=== PATIENT | female | born 1990 | race Two or more races ===

== ENCOUNTER 2019-07-05 06:46 | Inpatient (IN) | payer OTHER ==
[~2019-07-05] VITALS: Ht 152.4 cm; Wt 92.5 kg
[~2019-07-05 06:46] MED LIST: TRAM1TAB98 PO
[2019-07-05] MEDS ORDERED: PRENATAL TABLE1 EAC1 PO (08:38)
== END 2019-07-07 11:37 | disposition home or self-care (01) | DRG 807 ==
LOC: LDR 06:46 → OB/GYN 19:05
PROVIDERS: ADMIT Obstetrics & Gynecology
PROC: 10E0XZZ Delivery of Products of Conception, External Approach (ICD-10-PCS; principal; 2019-07-05)
PROC: 10907ZC Drainage of Amniotic Fluid, Therapeutic from Products of Conception, Via Natural or Artificial Opening (ICD-10-PCS; 2019-07-05)
PROC: 3E033VJ Introduction of Other Hormone into Peripheral Vein, Percutaneous Approach (ICD-10-PCS; 2019-07-05)
PROC: 4A1HXCZ Monitoring of Products of Conception, Cardiac Rate, External Approach (ICD-10-PCS; 2019-07-05)
DX: O80 Encounter for full-term uncomplicated delivery (principal); Z37.0 Single live birth; Z3A.39 39 weeks gestation of pregnancy

== ENCOUNTER 2020-10-30 10:06 | Emergency (ER) | payer OTHER ==
[~2020-10-30] VITALS: Ht 152.4 cm; Wt 92.1 kg
[~2020-10-30 10:06] MED LIST changes: +PRENATAL TABLE1 EAC1 PO
[2020-10-30] MEDS ORDERED: ZITHROMAX500 MG PO (14:38)
== END 2020-10-30 14:39 | disposition home or self-care (01) ==
LOC: ER 10:06
DX: R07.89 Other chest pain (principal); F06.4 Anxiety disorder due to known physiological condition; B96.0 Mycoplasma pneumoniae [M. pneumoniae] as the cause of diseases classified elsewhere; Z11.52 Encounter for screening for COVID-19